=== PATIENT | female | born 1980 | race American Indian/Alaskan Native ===

== ENCOUNTER 2017-11-29 16:31 | Emergency (ER) | payer MEDICAID ==
[2017-11-29] MEDS ORDERED: TYLENOL ONE (18:38)
[2017-11-29] MEDS ORDERED: NACL 0.9% 500 ML 500 ML IV ONE (18:38)
[2017-11-29] MEDS ORDERED: TYLENOL PO ONE (18:40)
[2017-11-29 19:23] LABS: Basophils % (Auto) 0.3 % (0.0-1.8); Eosinophils % (Auto) 0.2 % (0.0-4.3); Hematocrit 35.7 % (30.3-42.9); Hemoglobin 11.6 gm/dl (10.1-14.3); Lymphocytes # (Auto) 0.7 K/mm3 (1.2-5.4); Lymphocytes % (Auto) 9.4 % (13.4-35.0); Mean Corpuscular HGB Conc 33 % (30-34); Mean Corpuscular Volume 74 fl (79-97); Monocytes # (Auto) 0.5 K/mm3 (0.0-0.8); Monocytes % (Auto) 6.5 % (0.0-7.3); Platelet Count 292 K/mm3 (140-440); Red Blood Count 4.81 M/mm3 (3.65-5.03); Red Cell Distribution Width 19.2 % (13.2-15.2)
[2017-11-29 19:24] LABS: Mean Corpuscular Hemoglobin 24 pg (28-32)
[2017-11-29 19:34] LABS: INR 1.05 (0.87-1.13)
[2017-11-29 19:46] LABS: Alanine Aminotransferase 10 units/L (7-56); Albumin 4.1 g/dL (3.9-5); BUN/Creatinine Ratio 11; Blood Urea Nitrogen 8 mg/dL (7-17); Calcium 8.8 mg/dL (8.4-10.2); Hemolysis Index 2
--- NOTE | 2017-11-29 20:42 | XRay Report ---
FINAL REPORT PROCEDURE: XR CHEST 1V AP TECHNIQUE: Chest radiograph anteroposterior view. CPT 52986 HISTORY: possible Sepsis COMPARISON: No prior studies are available for comparison. FINDINGS: Heart: Normal. Mediastinum/Vessels: Normal. Lungs/Pleural space: No infiltrate, effusion, or pneumothorax. Bony thorax: No acute osseous abnormality. Life support devices: None. IMPRESSION: No radiographic evidence of acute cardiopulmonary abnormality.
[2017-11-29 21:27] LABS: Bilirubin,Urine NEG (Negative); Blood,Urine LG (Negative); Color,Urine Yellow (Yellow); Mucus,Urine FEW /HPF; Nitrite,Urine NEG (Negative); Urobilinogen,Urine < 2.0 mg/dL (<2.0)
[2017-11-29 21:31] LABS: RBC,Urine > 182.0 /HPF (0.0-6.0)
[2017-11-30 04:44] VITALS: BP 102/70
== END 2017-11-30 14:45 | disposition left against medical advice (07) ==
LOC: ED 16:31
DX: J11.1 Influenza due to unidentified influenza virus with other respiratory manifestations (principal); Z53.21 Procedure and treatment not carried out due to patient leaving prior to being seen by health care provider
CPT/HCPCS: 36415; 71045; 80053; 81001; 82140; 85025; 85610; 87040; 87086; 93005; 93010